=== PATIENT | male | born 1955 | race Caucasian/White ===

== ENCOUNTER 2017-07-07 12:01 | Emergency (ER) | payer BC ==
[~2017-07-07] VITALS: Ht 165.1 cm; Wt 95.8 kg
[2017-07-07 12:03] VITALS: Ht 165.1 cm; Wt 95.8 kg
[2017-07-07] MEDS ORDERED: KETOROLAC 30 MG INJ IM STA (12:17)
[2017-07-07] MEDS ORDERED: ACETAMINOPHEN 325 MG TAB PO ONE (12:30)
--- NOTE | 2017-07-07 12:55 | ERD ---
ER Documentation Chief Complaint Chief Complaint FEVER , CHILLS X 2 DAYS HPI 61-year-old male, with history of coronary artery disease and hypertension, presents to the emergency department complaining of sudden onset of subjective fever at home, chills and generalized arthralgia associated with upper respiratory symptoms including productive cough and congestion. The pain is dull, 8/10. The patient denies chest pain, shortness of breath, palpitations, no abdominal pain, no urinary symptoms. No treatment attempted at this time. No flu vaccine. History provided by patient. ROS A 12-point review of systems was performed and negative other than presented in the history of present illness. SYSTEMIC symptoms: Per HPI EYE symptoms: No blurred vision, no eye discharge OTOLARYNGEAL symptoms: No hearing loss. No ear pain, no sore throat CARDIOVASCULAR symptoms: No chest pain or discomfort, no palpitations. PULMONARY symptoms: No dyspnea, no cough, no wheezing. GASTROINTESTINAL symptoms: No abdominal pain, no nausea, no vomiting, no diarrhea MUSCULOSKELETAL symptoms: Per HPI NEUROLOGY symptoms: No confusion, no syncope, no numbness or tingling. SKIN: No rashes Medications Home Meds Active Scripts Ciprofloxacin Hcl* (Ciprofloxacin Hcl*) 250 Mg Tablet, 250 MG PO BID for 7 Days , #14 TAB Prov:GRECIA PEPE MD 07/07/17 Hydrocodone/Acetaminophen (Adolphus 5-325 Tablet) 1 Each Tablet, 1 TAB PO Q6H Y for PAIN, #20 TAB Prov:GRECIA PEPE MD 07/07/17 Allergies Allergies: Coded Allergies: No Known Allergy (Unverified , 07/07/17) PMhx/Soc History of Surgery: Yes (STENT) Anesthesia Reaction: No Hx Neurological Disorder: No Hx Respiratory Disorders: No Hx Cardiac Disorders: Yes (HTN, HYPERLIPIDEMIA) Hx Psychiatric Problems: No Hx Miscellaneous Medical Probl: No Hx Alcohol Use: No Hx Substance Use: No Hx Tobacco Use: Yes Smoking Status: Light tobacco smoker Physical Exam Vitals Vital Signs Date Time Temp Pulse Resp B/P Pulse Ox O2 Delivery O2 Flow Rate FiO2 07/07/17 12:03 101.8 97 18 134/95 99 Physical Exam Patient is in mild distress, vital signs showed temperature 101.8. Alert and fully oriented. EYES: PERRLA, EOMI, Sclera and conjunctiva appear normal. EARS: Canals clear, tympanic membranes WNL THROAT: Erythematous oropharynx. NECK: Supple, No lymphadenopathy. Full ROM without pain or tenderness. HEART: RRR, no rubs, murmurs, clicks or gallops. LUNGS: mild rhonchi ABDOMEN: Soft, non-tender without masses or hepatosplenomegaly. EXTREMITIES: No edema bilaterally. BACK: Full ROM, no deformity, normal back exam NEURO: Cranial nerves grossly intact, no motor or sensory deficit Results 24 hrs Current Medications Medications (Trade) Dose Ordered Sig/Sedrick Route PRN Reason Start Time Stop Time Status Last Admin Dose Admin Ketorolac Tromethamine (Toradol) 30 mg ONCE STAT IM 07/07/17 12:17 07/07/17 12:18 DC 07/07/17 12:25 Acetaminophen (Tylenol Tab) 325 mg ONCE ONCE PO 07/07/17 12:30 07/07/17 12:31 DC 07/07/17 12:24 Procedures/MDM 61-year-old male, with history of coronary artery disease and hypertension presents to the emergency department complaining of worsening of respiratory symptoms for 2 days. Vital signs showed fever of 101.8, Physical exam unremarkable. Differential diagnosis include but not limited to: Respiratory infection bacterial/viral/fungal. Asthma/COPD, pneumonitis, allergies, GERD. Less likely foreign body aspiration, cardiac related, aspiration pneumonia, malignancy. Pertinent Data: Rapid influenza: negative Physical examination and clinical presentation consistent most likely with Bronchitis. During the ED course the patient remained stable, no new complaints. The patient received treatment with Toradol IM and Tylenol presenting overall improvement of the symptoms. Results and clinical impression discussed with patient who agrees with management. The patient is stable to be treated outpatient and will be discharged home with a Rx for norco and ciprofloxacin some side effects of prescribed medications (headache, rash, nausea, vomiting, diarrhea, drowsiness, habituation, bleeding, hypertension, interactions with other medications) were reviewed. The patient was instructed to follow up with the primary care provider in the next 48h. If symptoms persist, worsen or new symptoms develop, then patient should return to the ED immediately. Instructions explained and given directly by me to the patient in [place] with acknowledgment and demonstrated understanding. Disclaimer: Inadvertent spelling and grammatical errors are likely due to EHR/ dictation software use and do not reflect on the overall quality of patient care. Also, please note that the electronic time recorded on this note does not necessarily reflect the actual time of the patient encounter. Departure Diagnosis: Primary Impression: Influenza-like symptoms Additional Impression: Fever Condition: Stable Additional Instructions: Call your primary care doctor TOMORROW for an appointment during the next 1-2 days. See the doctor sooner or return here if your condition worsens before your appointment time. Thank you very much for allowing us to participate in your care. Your health and safety is our top priority at [facility]. Have prescriptions filled and follow precisely the directions on the label. Follow-up with primary care provider during the next 4 days and bring all the information and medications prescribed. If illness has not improved in 2 days, then make an appointment with primary care provider. If the provider is unavailable, return to the Emergency Department immediately. GRECIA PEPE MD Jul 07, 2017 12:55
[2017-07-07] MEDS ORDERED: HYDR-906 PO (13:03)
[2017-07-07] MEDS ORDERED: CIPR-193 PO (13:19)
[2017-07-07 13:34] VITALS: BP 120/70; PULSE 105; RESP 16; TEMP 99.9
== END 2017-07-07 13:58 | disposition home or self-care (01) ==
LOC: FTE 12:01
DX: R50.9 Fever, unspecified (principal); I10 Essential (primary) hypertension; I25.10 Atherosclerotic heart disease of native coronary artery without angina pectoris; F17.210 Nicotine dependence, cigarettes, uncomplicated; Z98.61 Coronary angioplasty status
CPT/HCPCS: 87400; 96372; 99284; J1885; Z7610